=== PATIENT | male | born 1945 | race Caucasian/White ===

== ENCOUNTER 2021-06-26 04:45 | Day surgery (SDC) | payer OTHER, BC ==
[2021-06-24 16:03] VITALS: BMI 23.5
[2021-06-26 10:10] VITALS: TEMP 97.3
[2021-06-26 10:38] VITALS: BP 147/75; PULSE 92
== END 2021-06-26 11:15 | disposition home or self-care (01) ==
LOC: JASU-ENDO 04:45
PROVIDERS: ATTEND Internal Medicine Gastroenterology
PROC: 0DB68ZX Excision of Stomach, Via Natural or Artificial Opening Endoscopic, Diagnostic (ICD-10-PCS; 2021-06-26)
PROC: 0DJD8ZZ Inspection of Lower Intestinal Tract, Via Natural or Artificial Opening Endoscopic (ICD-10-PCS; principal; 2021-06-26 09:45)
DX: Z12.11 Encounter for screening for malignant neoplasm of colon (principal); K57.30 Diverticulosis of large intestine without perforation or abscess without bleeding; K29.50 Unspecified chronic gastritis without bleeding; Z86.010 Personal history of colon polyps
CPT/HCPCS: 43239; G0105; 88305-TC; 88342-TC